=== PATIENT | male | born 2000 | race Caucasian/White ===

== ENCOUNTER 2021-09-22 16:39 | Inpatient (IN) ==
[2021-09-23 00:10] LABS: Influenza A PCR Negative (Negative); Influenza B PCR Negative (Negative); Resp. Syncytial Virus PCR Negative (Negative)
[2021-09-23 00:11] LABS: SARS-CoV-2 by PCR (In House) Negative (Negative)
[2021-09-23] MEDS ORDERED: *HR* LORazepam 2 MG/ML VIAL IM PRN (02:05)
[2021-09-23] MEDS ORDERED: hydrOXYzine pamoate 25 MG CAPSULE PO PRN (02:05)
[2021-09-23] MEDS ORDERED: *HR* LORazepam 1 MG TABLET PO PRN (02:05)
[2021-09-23] MEDS ORDERED: haloperidoL 5 MG TABLET PO PRN (02:05)
[2021-09-23] MEDS ORDERED: Acetaminophen 325 MG TABLET PO PRN (02:05)
[2021-09-23] MEDS ORDERED: Haloperidol Lactate 5 MG/ML VIAL IM PRN (02:05)
[2021-09-23] MEDS ORDERED: traZODone 50 MG TABLET PO PRN (02:05)
[2021-09-23] MEDS: Nicotine 14 MG PATCH.TD24 TD SCH (09:50)
[2021-09-23] MEDS ORDERED: ARIPiprazole 5 MG TABLET PO SCH (21:00)
[2021-09-24] MEDS: Nicotine 14 MG PATCH.TD24 TD SCH (10:10)
[2021-09-24 10:39] VITALS: BP 113/72; PULSE 68; TEMP 98.1; O2SAT 100
== END 2021-09-24 17:35 | disposition home or self-care (01) | DRG 753 ==
LOC: EMEROOARM 16:39 → 1ANU 09-23 01:10
PROVIDERS: ADMIT Psychiatry & Neurology Forensic Psychiatry; ATTEND Psychiatry & Neurology Forensic Psychiatry